=== PATIENT | male | born 1970 | race Caucasian/White ===

== ENCOUNTER 2018-08-26 18:46 | Emergency (ER) | payer OTHER ==
--- NOTE | 2018-08-26 19:03 | ER ---
Nurse's Notes [facility] Name: Jacob Tinoco Age: 48 yrs Sex: Male : 1970 Arrival Date: 08/26/2018 Time: 18:50 Bed Waiting Private MD: Ellen Palafox K Diagnosis: Presentation: 08/26 19:01 Note pt's spouse states pt left does not want to be seen. bb ED Course: 18:50 Patient arrived in ED. sb2 18:50 Ellen Palafox MD is Private Physician. sb2 19:01 Patient's name was called from ER lobby. No response. Unable to locate patient. Will bb disposition as left without being seen by a provider. Administered Medications: No medications were administered Outcome: 19:03 Patient left the ED. bb Signatures: Kayley Gama, RN RN bb Carie Lozano sb2
== END 2018-08-26 19:03 | disposition left against medical advice (07) ==
LOC: ER 18:46
DX: Z53.21 Procedure and treatment not carried out due to patient leaving prior to being seen by health care provider (principal)